=== PATIENT | male | born 1960 | race Caucasian/White ===

== ENCOUNTER 2023-05-04 03:36 | Emergency (ER) | payer OTHER ==
[~2023-05-04] VITALS: Ht 185.4 cm; Wt 127.0 kg
[~2023-05-04 03:36] MED LIST: Augmentin 875-1 EACH PO
[2023-05-04] MEDS ORDERED: LISI5 PO (04:00)
[2023-05-04 04:03] LABS: BASOPHILS PERCENT AUTO 1 % (0-2); EOSINOPHILS ABSOLUTE AUTO 0.24 K/mm3 (0.00-0.68); EOSINOPHILS PERCENT AUTO 3 % (0-6); Hematocrit 50.9 % (37.0-53.0); Hemoglobin 16.7 g/dL (13.5-17.5); IMMATURE GRAN ABSOLUTE AUTO 0.07 K/mm3 (0.00-0.10); IMMATURE GRAN PERCENT AUTO 1 % (0-1); LYMPHOCYTES ABSOLUTE AUTO 2.04 K/mm3 (0.84-5.20); LYMPHOCYTES PERCENT AUTO 21 % (21-46); MONOCYTES ABSOLUTE AUTO 0.69 K/mm3 (0.16-1.47); MONOCYTES PERCENT AUTO 7 % (4-13); Mean Corpuscular HGB 27.6 pg (26.0-34.0); Mean Corpuscular HGB Conc 32.8 g/dL (31.5-36.5); Mean Corpuscular Volume 84 fL (80-100); Mean Platelet Volume 9.1 fL (9.1-12.4); NEUTROPHILS ABSOLUTE AUTO 6.57 K/mm3 (1.96-9.15); NEUTROPHILS PERCENT AUTO 68 % (41-73); Platelet Count 304 K/mm3 (150-400); RDW Standard Deviation 39.8 fL (35.1-46.3); Red Blood Cell Count 6.04 M/mm3 (4.30-5.90); White Blood Cell Count 9.71 K/mm3 (4.00-11.30)
[2023-05-04 04:49] LABS: Albumin, Blood 3.9 g/dL (3.4-5.0); Albumin/Globulin Ratio 1.1 (0.8-1.8); Bilirubin, Total 0.3 mg/dL (0.1-1.0); Bun/Creatinine Ratio 22.3 (12.0-20.0); Calcium, Blood 8.9 mg/dL (8.5-10.1); Creatinine, Blood 1.12 mg/dL (0.60-1.20); Globulin, Blood 3.6 g/dL (2.2-4.0); Potassium, Blood 4.1 mmol/L (3.5-5.5); Total Protein, Blood 7.5 g/dL (6.4-8.2)
[2023-05-04] MEDS ORDERED: ALMACONE SUSPE355 ML PO (06:52)
[2023-05-04] MEDS ORDERED: FAMO20 PO (06:52)
[2023-05-04 07:00] VITALS: BP 143/79
== END 2023-05-04 07:05 | disposition home or self-care (01) ==
LOC: ER 03:36
PROVIDERS: Emergency Medicine
DX: R07.89 Other chest pain (principal); R10.13 Epigastric pain; E11.9 Type 2 diabetes mellitus without complications; Z79.899 Other long term (current) drug therapy; Z87.891 Personal history of nicotine dependence
CPT/HCPCS: 71046; 80053; 84484; 85025; 93005; 93010; 99285-25; A9270

== ENCOUNTER → 2024-08-08 | Outpatient (CLI) | payer OTHER ==
[~2024-08-08] MED LIST changes: +ALMACONE SUSPE355 ML PO; +FAMO20 PO; +LISI5 PO
[2024-08-08 17:11] LABS: Very Low Density Lipoprot Chol 43 mg/dL (6-32)
[2024-08-08 17:13] LABS: Alanine Aminotransfer (ALT/SGP 41 U/L (12-78); Albumin, Blood 4.3 g/dL (3.4-5.0); Albumin/Globulin Ratio 1.4 (0.8-1.8); Alk Phos 75 U/L (50-136); Anion Gap 10 mmol/L (3-11); Aspartate Aminotrans (AST/SGOT 24 U/L (12-37); Bilirubin, Total 0.4 mg/dL (0.1-1.0); Blood Urea Nitrogen 14 mg/dL (8-24); Bun/Creatinine Ratio 17.6 (12.0-20.0); CHOL/HDL RATIO 2.9; CO2, Blood 24 mmol/L (21-32); Calcium, Blood 9.5 mg/dL (8.5-10.1); Chloride, Blood 106 mmol/L (98-108); Cholesterol 109 mg/dL (50-200); Globulin, Blood 3.1 g/dL (2.2-4.0); Glomerular Filtration Rate 100 (60-); Glucose, Blood 117 mg/dL (70-99); HDL Cholesterol 38 mg/dL (>39); LDL/HDL RATIO 0.7; Low Density Lipoprotein Chol 28 mg/dL (0-110); Potassium, Blood 4.4 mmol/L (3.5-5.5); Sodium, Blood 136 mmol/L (136-145); Total Protein, Blood 7.4 g/dL (6.4-8.2); Triglycerides 215 mg/dL (30-160)
== END | disposition home or self-care (01) ==
LOC: LAB 14:37 → LAB SHORT 14:37
PROVIDERS: Student in an Organized Health Care Education/Training Program
DX: E11.9 Type 2 diabetes mellitus without complications (principal); E78.5 Hyperlipidemia, unspecified; Z79.4 Long term (current) use of insulin
CPT/HCPCS: 80053; 80061; 83036